=== PATIENT | male | born 1975 | race Caucasian/White ===

== ENCOUNTER 2024-12-01 15:40 | Emergency (ER) | payer BC ==
[~2024-12-01] VITALS: Ht 167.6 cm; Wt 63.5 kg
[2024-12-01 19:18] LABS: BASOPHILS ABSOLUTE AUTO 0.09 K/mm3 (0.00-0.23); BASOPHILS PERCENT AUTO 1 % (0-2); EOSINOPHILS ABSOLUTE AUTO 0.61 K/mm3 (0.00-0.68); EOSINOPHILS PERCENT AUTO 7 % (0-6); Hematocrit 38.9 % (37.0-53.0); Hemoglobin 14.4 g/dL (13.5-17.5); IMMATURE GRAN ABSOLUTE AUTO 0.03 K/mm3 (0.00-0.10); IMMATURE GRAN PERCENT AUTO 0 % (0-1); LYMPHOCYTES ABSOLUTE AUTO 1.87 K/mm3 (0.84-5.20); LYMPHOCYTES PERCENT AUTO 20 % (21-46); MONOCYTES ABSOLUTE AUTO 1.03 K/mm3 (0.16-1.47); MONOCYTES PERCENT AUTO 11 % (4-13); Mean Corpuscular HGB 32.4 pg (26.0-34.0); Mean Corpuscular Volume 88 fL (80-100); Mean Platelet Volume 8.4 fL (9.1-12.4); NEUTROPHILS ABSOLUTE AUTO 5.75 K/mm3 (1.96-9.15); NEUTROPHILS PERCENT AUTO 61 % (41-73); Platelet Count 200 K/mm3 (150-400); RDW Coefficient Variation 12.7 % (11.7-14.2); RDW Standard Deviation 40.9 fL (35.1-46.3); Red Blood Cell Count 4.44 M/mm3 (4.30-5.90); White Blood Cell Count 9.38 K/mm3 (4.00-11.30)
[2024-12-01 19:39] LABS: Albumin, Blood 4.4 g/dL (3.4-5.0); Albumin/Globulin Ratio 1.1 (0.8-1.8); Bilirubin, Total 0.5 mg/dL (0.1-1.0); Bun/Creatinine Ratio 13.4 (12.0-20.0); Calcium, Blood 9.1 mg/dL (8.5-10.1); Creatinine, Blood 0.67 mg/dL (0.60-1.20); Globulin, Blood 3.9 g/dL (2.2-4.0); Potassium, Blood 3.9 mmol/L (3.5-5.5); Total Protein, Blood 8.3 g/dL (6.4-8.2)
[2024-12-01] MEDS ORDERED: Hydroxyzine HCl25 MG PO (19:53)
== END 2024-12-01 20:33 | disposition home or self-care (01) ==
LOC: ER 15:40
PROVIDERS: Student in an Organized Health Care Education/Training Program
DX: B36.9 Superficial mycosis, unspecified (principal); Z79.899 Other long term (current) drug therapy
CPT/HCPCS: 80053; 85025; 99283

== ENCOUNTER → 2024-12-03 | Outpatient (CLI) | payer BC ==
[~2024-12-03] MED LIST: Hydroxyzine HCl25 MG PO
== END ==
LOC: LAB 11:31 → LAB SHORT 11:31
DX: L08.0 Pyoderma (principal)
CPT/HCPCS: 87070; 87077; 87147; 87186; 87205

== ENCOUNTER 2025-03-08 21:40 | Inpatient (IN) | payer SELFPAY ==
[~2025-03-08] VITALS: Ht 170.2 cm; Wt 61.1 kg
[2025-03-08] MEDS ORDERED: LEVETIRACETAM50014 PO (21:55)
[2025-03-08 22:04] LABS: BASOPHILS PERCENT AUTO 2 % (0-2); EOSINOPHILS ABSOLUTE AUTO 0.07 K/mm3 (0.00-0.68); EOSINOPHILS PERCENT AUTO 1 % (0-6); Hematocrit 31.3 % (37.0-53.0); Hemoglobin 11.6 g/dL (13.5-17.5); IMMATURE GRAN ABSOLUTE AUTO 0.23 K/mm3 (0.00-0.10); IMMATURE GRAN PERCENT AUTO 4 % (0-1); LYMPHOCYTES ABSOLUTE AUTO 2.92 K/mm3 (0.84-5.20); LYMPHOCYTES PERCENT AUTO 45 % (21-46); MONOCYTES ABSOLUTE AUTO 1.02 K/mm3 (0.16-1.47); MONOCYTES PERCENT AUTO 16 % (4-13); Mean Corpuscular HGB 32.2 pg (26.0-34.0); Mean Corpuscular HGB Conc 37.1 g/dL (31.5-36.5); Mean Corpuscular Volume 87 fL (80-100); Mean Platelet Volume 7.6 fL (9.1-12.4); NEUTROPHILS ABSOLUTE AUTO 2.22 K/mm3 (1.96-9.15); NEUTROPHILS PERCENT AUTO 34 % (41-73); Platelet Count 524 K/mm3 (150-400); RDW Coefficient Variation 12.3 % (11.7-14.2); RDW Standard Deviation 39.8 fL (35.1-46.3); White Blood Cell Count 6.56 K/mm3 (4.00-11.30)
[2025-03-08 22:30] LABS: Albumin, Blood 3.4 g/dL (3.4-5.0); Bilirubin, Total 0.3 mg/dL (0.1-1.0); Bun/Creatinine Ratio 8.8 (12.0-20.0); Calcium, Blood 8.2 mg/dL (8.5-10.1); Creatinine, Blood 0.69 mg/dL (0.60-1.20); Globulin, Blood 3.5 g/dL (2.2-4.0); Potassium, Blood 3.8 mmol/L (3.5-5.5); Total Protein, Blood 6.9 g/dL (6.4-8.2)
[2025-03-09] MEDS ORDERED: Acetaminophen 325 MG TABLET PO PRN (00:45)
[2025-03-09] MEDS ORDERED: Ondansetron HCl 2 MG / ML 2ML Vial IV PRN (00:45)
[2025-03-09] MEDS ORDERED: NS 1,000 ML IV SCH (01:00)
[2025-03-09] MEDS ORDERED: GABA300 PO (01:42)
[2025-03-09 01:43] VITALS: BP 141/92
[2025-03-09] MEDS ORDERED: OLME5TAB PO (01:43)
[2025-03-09] MEDS ORDERED: ChlordiazePOXIDE 25 MG Cap PO PRN (02:20)
[2025-03-09] MEDS ORDERED: DiphenhydrAMINE HCL 25 MG Cap PO PRN (02:20)
--- NOTE | 2025-03-09 02:31 | NUR ---
ASSUMED CARE OF PT AT 0215 FROM BREAK JAYCEE BOWER DID ASSESSMENT ON PT AND GAVE ME REPORT. PT IS IND IN ROOM AND MAKES NEEDS KNOWN W/CALL LIGHT IN REACH. PT ORIGINALLY CAME FROM THE ER AND WAS ADMITTED FOR HYPONATREMIA.PT IS A 49 YO FULL CODE
[2025-03-09] MEDS ORDERED: Nicotine 14 MG PATCH TOP SCH ×2 (02:50)
--- NOTE | 2025-03-09 03:04 | NUR ---
HOSPITALIST CALLED BECAUSE PT HAS HORRIBLE LEG PAIN THAT HE TAKES GABAPENTIN FOR TID 300MG. HOSPITALIST ORDERED GABAPENTIN 300MG TID AND TO START FIRST DOSE NOW.
[2025-03-09] MEDS ORDERED: Gabapentin 300 MG Cap PO SCH (03:05)
[2025-03-09] MEDS ORDERED: Thiamine HCl 100 MG in NS 50 ML IV SCH (04:00)
[2025-03-09] MEDS ORDERED: Folic Acid 1 MG in NS 50 ML IV SCH (04:00)
[2025-03-09 07:05] VITALS: BP 155/106
[2025-03-09] MEDS ORDERED: Docusate Sodium 100 MG Cap PO SCH (09:00)
[2025-03-09] MEDS ORDERED: LevETIRAcetam 500 MG Tab PO SCH (09:00)
[2025-03-09 15:10] VITALS: BP 164/105
--- NOTE | 2025-03-09 17:33 | NUR ---
PHYSICIAN CONTACT ATTEMPTED TO CONTACT DR STEVENSON REGARDING ELEVATED BP THROUGHOUT THE SHIFT, REALIZED SHE HAD ORDERED COZZAR FOR AM. CONSULTED WITH PHARMACY REGARDING THE POTENTIAL FOR THESE MEDS TO LOWER SODIUM. 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 PATIENT HAS BEEN TAKING OLMESARTAN AT HOME. WAITING FOR CALL BACK
[2025-03-09] MEDS ORDERED: Losartan Potassium 25 MG Tab PO ONE (17:50)
--- NOTE | 2025-03-09 18:46 | NUR ---
SHIFT SUMMARY PATIENT BP RUNNING HIGH THIS SHIFT, DR STEVENSON ORDERED COZZAR WITH START THIS PM, DOSE GIVEN. CIWA SCORING 7 THIS AM, NO INTERVENTION NEEDED THE REMAINDER OF THE SHIFT. ABLE TO AMBULATE IN ROOM INDEPENDENTLY. NA+ TRENDING UP. EATING AND DRINKING WELL. ABLE TO MAKE NEEDS KNOWN.CARES ONGOING
[2025-03-09 19:57] VITALS: BP 161/95
--- NOTE | 2025-03-10 03:00 | NUR ---
SHIFT SUMM: PT HAS BEEN RELAXING MOST OF THE SHIFT AND HAS BEEN NERVOUS ABOUT SODIUM LEVELS AND WHEN HE GET TO D/C HOME BECAUSE HES WORRIED ABOUT WORK. PT IS IND IN ROOM AND MAKES NEEDS KNOWN. PT HAS BEEN COOPERATIVE W/CARE AND CIWA SCORES HAVE BEEN WNL AND NOT NEEDED ANY LIBRIUM THIS SHIFT. PT'S LEG PAIN HAS BEEN CONTROLLED THIS EVENING (SEE EMAR).
[2025-03-10 05:26] VITALS: BP 159/99
[2025-03-10 06:16] LABS: BASOPHILS ABSOLUTE AUTO 0.14 K/mm3 (0.00-0.23); BASOPHILS PERCENT AUTO 2 % (0-2); EOSINOPHILS ABSOLUTE AUTO 0.11 K/mm3 (0.00-0.68); EOSINOPHILS PERCENT AUTO 2 % (0-6); Hematocrit 32.6 % (37.0-53.0); Hemoglobin 11.6 g/dL (13.5-17.5); IMMATURE GRAN ABSOLUTE AUTO 0.09 K/mm3 (0.00-0.10); IMMATURE GRAN PERCENT AUTO 2 % (0-1); LYMPHOCYTES ABSOLUTE AUTO 1.67 K/mm3 (0.84-5.20); LYMPHOCYTES PERCENT AUTO 28 % (21-46); MONOCYTES ABSOLUTE AUTO 0.85 K/mm3 (0.16-1.47); MONOCYTES PERCENT AUTO 14 % (4-13); Mean Corpuscular HGB 32.6 pg (26.0-34.0); Mean Corpuscular HGB Conc 35.6 g/dL (31.5-36.5); Mean Platelet Volume 7.7 fL (9.1-12.4); NEUTROPHILS ABSOLUTE AUTO 3.12 K/mm3 (1.96-9.15); NEUTROPHILS PERCENT AUTO 52 % (41-73); Platelet Count 508 K/mm3 (150-400); RDW Coefficient Variation 12.9 % (11.7-14.2); RDW Standard Deviation 43.6 fL (35.1-46.3); Red Blood Cell Count 3.56 M/mm3 (4.30-5.90); White Blood Cell Count 5.98 K/mm3 (4.00-11.30)
[2025-03-10 06:19] LABS: Mean Corpuscular Volume 92 fL (80-100)
[2025-03-10 06:49] LABS: Bun/Creatinine Ratio 5.8 (12.0-20.0); Calcium, Blood 8.6 mg/dL (8.5-10.1); Creatinine, Blood 0.51 mg/dL (0.60-1.20); Potassium, Blood 4.2 mmol/L (3.5-5.5)
[2025-03-10 07:41] VITALS: BP 156/103
[2025-03-10] MEDS ORDERED: Losartan Potassium 25 MG Tab PO SCH (09:00)
[2025-03-10] MEDS ORDERED: NS 1,000 ML IV SCH (11:20)
[2025-03-10 15:42] VITALS: BP 158/98
--- NOTE | 2025-03-10 16:47 | NUR ---
SHIFT SUMMARY PATIENT A/OX4, INDEPENDENT AMBULATORY. RECEIVING NS VIA IV. EATING AND DRINKING WELL. CIWAS 0 THROUGHOUT SHIFT SO FAR. REPORTING FEELING ANXIOUS ABOUT NO LABS BEING REPEATED, CALLED DR WELLS WHO OKAYED A SPOT SODIUM TO BE DRAWN, PATIENT INFORMED.
[2025-03-10 20:07] VITALS: BP 154/94
--- NOTE | 2025-03-11 04:06 | NUR ---
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 A&O X4. MAKES NEEDS KNOWN AND USES CALL LIGHT APPROPRIATELY. INDEPENDENT IN ROOM AND WITH BED MOBILITY. NO ACUTE DISTRESS OR CHANGES T/O SHIFT. CIWA SCORE 0 T/O SHIFT. PT REQUESTED BENADRYL AND TYLENOL PER EMAR ORDER; EFFECTIVE. ANTICIPATED D/C TOMORROW. BED IN LOWEST POSITION. CALL LIGHT IN REACH. CARES ONGOING ORDERED.
[2025-03-11 05:11] VITALS: BP 161/107
[2025-03-11 07:09] LABS: BASOPHILS ABSOLUTE AUTO 0.19 K/mm3 (0.00-0.23); BASOPHILS PERCENT AUTO 4 % (0-2); EOSINOPHILS ABSOLUTE AUTO 0.22 K/mm3 (0.00-0.68); EOSINOPHILS PERCENT AUTO 5 % (0-6); Hematocrit 32.6 % (37.0-53.0); Hemoglobin 11.3 g/dL (13.5-17.5); IMMATURE GRAN ABSOLUTE AUTO 0.04 K/mm3 (0.00-0.10); IMMATURE GRAN PERCENT AUTO 1 % (0-1); LYMPHOCYTES ABSOLUTE AUTO 1.19 K/mm3 (0.84-5.20); LYMPHOCYTES PERCENT AUTO 25 % (21-46); MONOCYTES ABSOLUTE AUTO 0.96 K/mm3 (0.16-1.47); MONOCYTES PERCENT AUTO 20 % (4-13); Mean Corpuscular HGB 32.5 pg (26.0-34.0); Mean Corpuscular HGB Conc 34.7 g/dL (31.5-36.5); Mean Corpuscular Volume 94 fL (80-100); NEUTROPHILS ABSOLUTE AUTO 2.13 K/mm3 (1.96-9.15); NEUTROPHILS PERCENT AUTO 45 % (41-73); Platelet Count 474 K/mm3 (150-400); RDW Coefficient Variation 12.9 % (11.7-14.2); RDW Standard Deviation 44.5 fL (35.1-46.3); Red Blood Cell Count 3.48 M/mm3 (4.30-5.90); White Blood Cell Count 4.73 K/mm3 (4.00-11.30)
[2025-03-11 07:13] VITALS: BP 164/104
[2025-03-11 07:25] LABS: Bun/Creatinine Ratio 9.5 (12.0-20.0); Calcium, Blood 8.4 mg/dL (8.5-10.1); Creatinine, Blood 0.53 mg/dL (0.60-1.20); Potassium, Blood 3.5 mmol/L (3.5-5.5)
[2025-03-11 11:40] VITALS: BP 141/99
[2025-03-11 16:04] VITALS: BP 156/101
[2025-03-11 16:11] LABS: Bun/Creatinine Ratio 10.1 (12.0-20.0); Calcium, Blood 9.3 mg/dL (8.5-10.1); Creatinine, Blood 0.59 mg/dL (0.60-1.20); Potassium, Blood 4.1 mmol/L (3.5-5.5)
[2025-03-11] MEDS ORDERED: AmLODIPine Besylate 5 MG Tab PO SCH (17:00)
[2025-03-11 19:45] VITALS: BP 154/100
--- NOTE | 2025-03-11 19:56 | NUR ---
SUMMARY PATIENT SODIUM THIS AM IS 127, IVF HAD BEEN DISCONTINUED OVERNIGHT RELATED TO ELEVATED BLOOD PRESSURES. RESTARTED AT 125 ML/HR. NEW BLOOD PRESSURE MEDICATION ADDED PER DR. DONNELLY TO MANAGE. MONITORING URINE OUTPUT. URINE SODIUM LAB COLLECTED, AND CAME BACK NORMAL. ABLE TO MAKE NEEDS KNOWN. IND IN ROOM.
--- NOTE | 2025-03-12 03:51 | NUR ---
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 A&O X4. MAKES NEEDS KNOWN AND USES CALL LIGHT APPROPRIATELY. INDEPENDENT IN ROOM AND WITH BED MOBILITY. NO ACUTE DISTRESS OR CHANGES T/O SHIFT. PT REQUESTED BENADRYL AND TYLENOL PER EMAR ORDER; EFFECTIVE. NS INFUSING AT 125ML/HR. ANTICIPATED D/C TOMORROW. BED IN LOWEST POSITION. CALL LIGHT IN REACH. CARES ONGOING ORDERED.
[2025-03-12 05:04] VITALS: BP 171/101
[2025-03-12 06:21] LABS: BASOPHILS ABSOLUTE AUTO 0.18 K/mm3 (0.00-0.23); BASOPHILS PERCENT AUTO 3 % (0-2); EOSINOPHILS ABSOLUTE AUTO 0.32 K/mm3 (0.00-0.68); EOSINOPHILS PERCENT AUTO 6 % (0-6); Hematocrit 35.2 % (37.0-53.0); Hemoglobin 12.3 g/dL (13.5-17.5); IMMATURE GRAN ABSOLUTE AUTO 0.04 K/mm3 (0.00-0.10); IMMATURE GRAN PERCENT AUTO 1 % (0-1); LYMPHOCYTES ABSOLUTE AUTO 1.74 K/mm3 (0.84-5.20); LYMPHOCYTES PERCENT AUTO 31 % (21-46); MONOCYTES ABSOLUTE AUTO 0.92 K/mm3 (0.16-1.47); MONOCYTES PERCENT AUTO 16 % (4-13); Mean Corpuscular HGB 31.9 pg (26.0-34.0); Mean Corpuscular HGB Conc 34.9 g/dL (31.5-36.5); Mean Corpuscular Volume 91 fL (80-100); Mean Platelet Volume 7.6 fL (9.1-12.4); NEUTROPHILS ABSOLUTE AUTO 2.47 K/mm3 (1.96-9.15); NEUTROPHILS PERCENT AUTO 44 % (41-73); Platelet Count 448 K/mm3 (150-400); RDW Coefficient Variation 12.7 % (11.7-14.2); RDW Standard Deviation 42.2 fL (35.1-46.3); Red Blood Cell Count 3.86 M/mm3 (4.30-5.90); White Blood Cell Count 5.67 K/mm3 (4.00-11.30)
[2025-03-12 06:45] LABS: Bun/Creatinine Ratio 8.2 (12.0-20.0); Calcium, Blood 9.1 mg/dL (8.5-10.1); Creatinine, Blood 0.49 mg/dL (0.60-1.20); Potassium, Blood 3.7 mmol/L (3.5-5.5)
[2025-03-12 07:09] VITALS: BP 162/99
[2025-03-12 11:09] VITALS: BP 146/91
[2025-03-12] MEDS ORDERED: AMLO5 PO (15:36)
[2025-03-12 15:42] VITALS: BP 153/103
--- NOTE | 2025-03-12 15:57 | NUR ---
DISCHARGE NOTE PATIENT EDUCATED ON DISCHARGE PACKET AND NEW PRESCRIPTION. FAXED TO [facility]. PATIENT HAS SCHEDULED FOLLOW UP APPT AT [facility] ON 03/19. IV REMOVED. NO NEW QUESTIONS OR CONCERNS AT THIS TIME. PATIENT HAS A RETURN TO WORK ORDER ON TUESDAY. PATIETN EDUCATED TO KEEP DRINKING ELECTRLYTES AND KEEP APPETITE UP AND RETURN IF NEW OR WORSENING SIGNS/SYMPTOMS APPEAR. NO NEW QUESTIONS OR CONCERNS PRIOR TO DC. AWAITING RIDE TO FOOD OR BAGGAGE HANDLING RAMPMAN PATIENT. DISCHARGE PAPERWORK SIGNED. WILL ESCORT DOWN VIA WHEELCHAIR.
== END 2025-03-12 16:23 | disposition home or self-care (01) | DRG 641 ==
LOC: ER 21:40 → MEDS 03-09 00:42
PROVIDERS: Family Medicine; Internal Medicine; Student in an Organized Health Care Education/Training Program; ADMIT Student in an Organized Health Care Education/Training Program
DX: E87.1 Hypo-osmolality and hyponatremia (principal); G40.909 Epilepsy, unspecified, not intractable, without status epilepticus; F10.90 Alcohol use, unspecified, uncomplicated; I10 Essential (primary) hypertension; F17.220 Nicotine dependence, chewing tobacco, uncomplicated
CPT/HCPCS: 36415; 80048; 80053; 83735; 83930; 83935; 84100; 84295; 84300; 84443; 85025; 93005; 93010; 99284-25; A9270; J3411; J7030